=== PATIENT | male | born 1985 | race Caucasian/White ===

== ENCOUNTER 2018-09-07 20:50 | Emergency (ER) | payer OTHER | END 2018-09-07 22:01 | disposition home or self-care (01) | LOC: EDH 20:50 | DX: S80.11XA Contusion of right lower leg, initial encounter (principal); Z72.0 Tobacco use; W22.8XXA Striking against or struck by other objects, initial encounter; Y93.89 Activity, other specified; Y92.89 Other specified places as the place of occurrence of the external cause; Y99.8 Other external cause status | CPT/HCPCS: 73590 ==

== ENCOUNTER 2018-09-09 15:27 | Emergency (ER) | payer OTHER | END 2018-09-09 15:53 | disposition home or self-care (01) | LOC: EDH 15:27 | DX: S80.11XA Contusion of right lower leg, initial encounter (principal); W22.8XXA Striking against or struck by other objects, initial encounter; Y93.89 Activity, other specified; Y92.89 Other specified places as the place of occurrence of the external cause; Y99.8 Other external cause status | CPT/HCPCS: 99281 ==